=== PATIENT | female | born 1975 | race Two or more races ===

== ENCOUNTER 2025-05-16 13:21 | Emergency (ER) | payer OTHER ==
[~2025-05-16] VITALS: Ht 307.3 cm; Wt 72.6 kg
[2025-05-16] MEDS: KETOROLAC TROMETHAMINE INJ 30 MG/ML VIAL IM ONE (14:41)
[2025-05-16 14:53] VITALS: BP 118/75; TEMP 97.7; O2SAT 98
== END 2025-05-16 14:54 | disposition home or self-care (01) ==
LOC: ER 13:22
DX: M25.562 Pain in left knee (principal); Z60.2 Problems related to living alone; W01.0XXA Fall on same level from slipping, tripping and stumbling without subsequent striking against object, initial encounter; Y92.89 Other specified places as the place of occurrence of the external cause; Y99.9 Unspecified external cause status; Y93.01 Activity, walking, marching and hiking
CPT/HCPCS: 99283; 96372; 73564; J1885